=== PATIENT | male | born 1970 | race Caucasian/White ===

== ENCOUNTER 2016-07-26 18:28 | Emergency (ER) | payer OTHER ==
[~2016-07-26] VITALS: Ht 188 cm; Wt 102.0 kg
[~2016-07-26 18:28] MED LIST: BACT800T5 PO; CEPH500C3 PO; HYDR-3533 PO; IBUP-232 PO; IBUP-238 PO
[2016-07-26 18:30] VITALS: BP 141/85; PULSE 72; RESP 20; TEMP 97.8; O2SAT 96
--- NOTE | 2016-07-26 19:12 | PD ---
HPI Chief Complaint: ENT Complaint Time Seen by Provider: 19:02 Travel History International Travel<30 days: No Contact w/Intl Traveler<30days: No Traveled to known affect area: No History of Present Illness HPI This is a 46-year-old male who presents for evaluation of sore throat. Symptoms started 2 days ago. It hurts to swallow. He denies fevers, chills, rash, recent travel, cough, congestion, abdominal pain, nausea, vomiting. He reports that his son has had a sore throat over the past few days and he was diagnosed with mono. He has no other complaints at this time. [facility] Past Medical History Diminished Hearing: No Implanted Vascular Access Dvce: Yes Respiratory: No Past Surgical History Body Medical Devices: MARIE RODS PLACED IN 1986 Neurologic Surgery: Yes (SPINAL FUSION W/MARIE TONNY PLACEMENT) Other Surgery: Yes Social History Alcohol Use: Yes (RARELY) Tobacco Use: No Substance Use: No Allergies-Medications (Allergen,Severity, Reaction): Coded Allergies: No Known Allergies (Verified , 07/26/16) Reported Meds & Prescriptions Reported Meds & Active Scripts Active No Active Prescriptions or Reported Medications Review of Systems Except as stated in HPI: all other systems reviewed are Neg Physical Exam Narrative GENERAL: Well-developed well-nourished male in no acute distress SKIN: Warm and dry. HEAD: Atraumatic. Normocephalic. EYES: Pupils equal and round. No scleral icterus. No injection or drainage. ENT: No nasal bleeding or discharge. Mucous membranes pink and moist. There is no oropharyngeal erythema, no exudate, uvula midline with no mass effect. Voice is not hoarse or muffled, no stridor or drooling. NECK: Trachea midline. No JVD. No lymphadenopathy. Neck supple with full range of motion. CARDIOVASCULAR: Regular rate and rhythm. No murmur appreciated. RESPIRATORY: No accessory muscle use. Clear to auscultation. Breath sounds equal bilaterally. GASTROINTESTINAL: Abdomen soft, non-tender, nondistended. Hepatic and splenic margins not palpable. Data Data Last Documented VS Vital Signs Date Time Temp Pulse Resp B/P Pulse Ox O2 Delivery O2 Flow Rate FiO2 07/26/16 18:30 97.8 72 20 141/85 96 Room Air Orders Acetaminophen (Tylenol) (07/26/16 19:15) Group A Rapid Strep Screen (07/26/16 19:08) Monoscreen (07/26/16 19:10) Strep Culture (Group A) (07/26/16 19:05) Labs Laboratory Tests Test 07/26/16 19:05 Monoscreen NEG MDM Medical Decision Making Medical Screen Exam Complete: Yes Emergency Medical Condition: Yes Medical Record Reviewed: Yes Differential Diagnosis Infectious mononucleosis, other viral pharyngitis, streptococcal pharyngitis, peritonsillar abscess, retropharyngeal abscess, epiglottitis Narrative Course This is a 46-year-old male who is otherwise healthy who presents with a sore throat for 2 days. His examination is benign. He has no oral pharyngeal erythema, exudate, uvula midline. No mass effect. He is not febrile or tachycardic. Of note though is his son was diagnosed with mono after having a sore throat for the past few days. Clinically the patient's symptoms at this time are very mild. mono screen and a rapid strep screen have been ordered. Tylenol will be administered. The patient's mono screen was negative and his rapid strep screen was negative. I did explain to the patient that although his mono screen is negative there is a high rate of false negative mono screen results in the first few days of a mononucleosis infection and so if his symptoms persist then he should follow up for reevaluation next week. On examination however his symptoms are very mild and I don't feel that emergent Catherine-Mosley virus antigen tests need to be performed today. This will be treated as a viral pharyngitis with supportive care. He is encouraged to return here for any acutely worsening symptoms. Diagnosis Primary Impression: Pharyngitis Qualified Code: J02.9 - Pharyngitis, unspecified etiology Additional Instructions: As discussed, you have a sore throat for the past 2 days. You had a negative mono screen test and a negative rapid strep screen test today. This does not entirely exclude infectious mononucleosis as a diagnosis however there is no evidence of a bacterial pharyngitis that would require antibiotics at this time. Stay well-hydrated and well-nourished. Take Tylenol or Motrin for discomfort. Rest. If sore throat lingers follow-up with primary care physician next week. Return here for any acutely worsening symptoms. Med/Other Pt SpecificInfo: No Change to Meds Scripts No Active Prescriptions or Reported Meds Disposition: 01 DISCHARGE HOME Condition: Stable Marc Boss Jul 26, 2016 19:12
[2016-07-26] MEDS ORDERED: ACETAMINOPHEN 325 MG TAB PO ONE (19:15)
[2016-07-26 20:35] VITALS: BP 149/56; RESP 16; TEMP 99.1
== END 2016-07-26 20:36 | disposition home or self-care (01) ==
LOC: NEPB 18:28
DX: J02.9 Acute pharyngitis, unspecified (principal)
CPT/HCPCS: 86308; 87081; 87880; 99283

== ENCOUNTER 2017-08-07 22:49 | Emergency (ER) | payer OTHER ==
[~2017-08-07] VITALS: Ht 188 cm; Wt 116.8 kg
[2017-08-07 23:18] VITALS: BP 140/82; PULSE 70; RESP 16; TEMP 98.5; O2SAT 99
== END 2017-08-08 00:27 | disposition left against medical advice (07) ==
LOC: PHED 22:49
DX: J02.9 Acute pharyngitis, unspecified (principal)
CPT/HCPCS: 99281